=== PATIENT | female | born 1975 | race Caucasian/White ===

== ENCOUNTER 2017-01-25 16:18 | Emergency (ER) | payer OTHER ==
[~2017-01-25 16:18] MED LIST: BACTROBAN22 TOP; HIB240 TP; KLOR-CON M1010 MEQ PO; LAC PO; LASIX; LASIX40 MG PO; LEVAQUIN750 MG PO; LIPI10 PO; METOPROLOL TART25 M1 PO; REVATIO20 M1 PO; ROB750 PO; VIAGRA50 MG PO; VITAMIN D1 TA1 PO; ZES5 PO
[2017-01-25 16:59] VITALS: BP 117/48
== END 2017-01-25 17:00 | disposition home or self-care (01) ==
LOC: ED 16:18
DX: I83.891 Varicose veins of right lower extremity with other complications (principal); I10 Essential (primary) hypertension

== ENCOUNTER 2017-03-02 01:26 | Emergency (ER) | payer OTHER ==
[2017-03-02 02:27] LABS: PLATELET COUNT 232 x10^3mcL (130-400); RED CELL DISTRIBUTION WIDTH 14.2 % (11.5-14.5)
[2017-03-02 02:31] LABS: BASOPHIL % 7.5 % (0-2)
[2017-03-02 02:43] LABS: ALKALINE PHOSPHATASE 190 U/L (46-116); ALT/SGPT 26 U/L (14-59); AST/SGOT 33 U/L (15-37); BILIRUBIN TOTAL 1.4 mg/dL (0.20-1.00); CALCIUM 8.7 mg/dL (8.5-10.1); CARBON DIOXIDE 21.3 mmol/L (21-32); CHLORIDE SERUM 103 mmol/L (98-107); CREATININE SERUM 0.5 mg/dL (0.6-1.0); GFR1 > 60 mL/min; GLUCOSE SERUM 85 mg/dL (74-106); SODIUM SERUM 139 mmol/L (136-145); TOTAL PROTEIN, SERUM 7.4 g/dL (6.4-8.2)
[2017-03-02 02:46] LABS: POTASSIUM SERUM 2.8 mmol/L (3.5-5.1)
[2017-03-02 03:16] LABS: microscopic required? YES; urine erythrocyte 2+ (NEGATIVE)
[2017-03-02 05:23] VITALS: BP 128/75
== END 2017-03-02 05:20 | disposition home or self-care (01) ==
LOC: ED 01:26
PROVIDERS: Emergency Medicine
DX: O03.9 Complete or unspecified spontaneous abortion without complication (principal); O10.111 Pre-existing hypertensive heart disease complicating pregnancy, first trimester; I50.9 Heart failure, unspecified; Z3A.01 Less than 8 weeks gestation of pregnancy
CPT/HCPCS: 36415; J1170; Q0162

== ENCOUNTER 2017-06-28 22:06 | Emergency (ER) | payer OTHER | END 2017-06-28 23:33 | disposition left against medical advice (07) | LOC: ED 22:06 | DX: Z53.21 Procedure and treatment not carried out due to patient leaving prior to being seen by health care provider (principal) ==

== ENCOUNTER 2017-07-04 07:17 | Emergency (ER) | payer OTHER ==
[~2017-07-04] VITALS: Ht 167.6 cm; Wt 97.2 kg
[2017-07-04 07:30] VITALS: Ht 167.6 cm; Wt 97.2 kg
[2017-07-04 10:40] VITALS: BP 128/73
== END 2017-07-04 10:41 | disposition home or self-care (01) ==
LOC: ED 07:17
DX: S29.011A Strain of muscle and tendon of front wall of thorax, initial encounter (principal); I10 Essential (primary) hypertension; X58.XXXA Exposure to other specified factors, initial encounter; Y93.89 Activity, other specified; Y92.89 Other specified places as the place of occurrence of the external cause; Y99.8 Other external cause status

== ENCOUNTER 2018-04-20 23:16 | Inpatient (IN) | payer OTHER ==
[~2018-04-20] VITALS: Ht 167.6 cm; Wt 99.8 kg
[2018-04-20 23:20] VITALS: Ht 167.6 cm; Wt 99.8 kg
[2018-04-21 00:05] LABS: BASOPHIL % 1.1 % (0-2); PLATELET COUNT 206 x10^3mcL (130-400)
[2018-04-21 00:11] LABS: RED CELL DISTRIBUTION WIDTH 19.4 % (11.5-14.5)
[2018-04-21 00:17] LABS: ALBUMIN 2.9 g/dL (3.4-5.0); ALKALINE PHOSPHATASE 250 U/L (46-116); ALT/SGPT 33 U/L (14-59); AST/SGOT 50 U/L (15-37); BILIRUBIN TOTAL 3.1 mg/dL (0.20-1.00); CALCIUM 8.4 mg/dL (8.5-10.1); CARBON DIOXIDE 25.6 mmol/L (21-32); CHLORIDE SERUM 105 mmol/L (98-107); CREATININE SERUM 0.7 mg/dL (0.6-1.0); GFR1 > 60 mL/min; GLUCOSE SERUM 85 mg/dL (74-106); SODIUM SERUM 137 mmol/L (136-145); TOTAL PROTEIN, SERUM 7.4 g/dL (6.4-8.2)
[2018-04-21 00:21] LABS: POTASSIUM SERUM 2.9 mmol/L (3.5-5.1)
[2018-04-21 01:42] LABS: MAGNESIUM 1.8 mg/dL (1.8-2.4)
[2018-04-21 01:54] LABS: CHOLESTEROL/HDL RATIO 1.8
[2018-04-21 02:35] VITALS: BP 116/81
[2018-04-21 03:17] VITALS: BP 131/56
[2018-04-21 05:32] LABS: microscopic required? NO
[2018-04-21 05:52] LABS: urine erythrocyte NEGATIVE (NEGATIVE)
[2018-04-21 06:06] LABS: AMPHETAMINE QUAL UR POSITIVE (See below)
[2018-04-21 09:10] VITALS: BP 124/69
[2018-04-21 12:50] VITALS: BP 96/58
[2018-04-21 18:04] VITALS: BP 105/58
[2018-04-21 20:53] VITALS: BP 98/60
[2018-04-22 05:29] VITALS: BP 93/54
[2018-04-22 07:19] LABS: BASOPHIL % 1.3 % (0-2); PLATELET COUNT 201 x10^3mcL (130-400)
[2018-04-22 07:23] LABS: RED CELL DISTRIBUTION WIDTH 19.7 % (11.5-14.5)
[2018-04-22 07:53] LABS: CARBON DIOXIDE 23.1 mmol/L (21-32); CHLORIDE SERUM 103 mmol/L (98-107); CREATININE SERUM 0.7 mg/dL (0.6-1.0); GFR1 > 60 mL/min; GLUCOSE SERUM 84 mg/dL (74-106); POTASSIUM SERUM 3.2 mmol/L (3.5-5.1); SODIUM SERUM 137 mmol/L (136-145)
[2018-04-22 08:54] VITALS: BP 108/69
[2018-04-22 13:23] VITALS: BP 109/60
== END 2018-04-22 15:17 | disposition left against medical advice (07) | DRG 207 ==
LOC: ED 23:16 → DU 04-21 01:00
PROVIDERS: Emergency Medicine; Internal Medicine
DX: I27.20 Pulmonary hypertension, unspecified (principal); J96.91 Respiratory failure, unspecified with hypoxia; I50.33 Acute on chronic diastolic (congestive) heart failure; J18.9 Pneumonia, unspecified organism; I11.0 Hypertensive heart disease with heart failure; I36.1 Nonrheumatic tricuspid (valve) insufficiency; E87.6 Hypokalemia; F15.10 Other stimulant abuse, uncomplicated; I37.1 Nonrheumatic pulmonary valve insufficiency; I25.10 Atherosclerotic heart disease of native coronary artery without angina pectoris; Z53.21 Procedure and treatment not carried out due to patient leaving prior to being seen by health care provider; J44.0 Chronic obstructive pulmonary disease with (acute) lower respiratory infection; Z68.35 Body mass index [BMI] 35.0-35.9, adult; Z83.3 Family history of diabetes mellitus; Z71.51 Drug abuse counseling and surveillance of drug abuser
CPT/HCPCS: 83880; 85378; 87804; 90658; J1644; J1940; J1956; J7620; Q0092

== ENCOUNTER 2018-07-28 21:21 | Inpatient (IN) | payer OTHER ==
[~2018-07-28] VITALS: Ht 167.6 cm; Wt 105.0 kg
[2018-07-28 22:16] LABS: PLATELET COUNT 207 x10^3mcL (130-400)
[2018-07-28 22:17] LABS: RED CELL DISTRIBUTION WIDTH 18.9 % (11.5-14.5)
[2018-07-28 22:45] LABS: ALKALINE PHOSPHATASE 225 U/L (46-116); ALT/SGPT 27 U/L (14-59); AST/SGOT 43 U/L (15-37); BILIRUBIN TOTAL 3.92 mg/dL (0.20-1.00); CALCIUM 8.2 mg/dL (8.5-10.1); CARBON DIOXIDE 30.9 mmol/L (21-32); CHLORIDE SERUM 101 mmol/L (98-107); CREATININE SERUM 0.7 mg/dL (0.6-1.0); GFR1 > 60 mL/min; GLUCOSE SERUM 102 mg/dL (74-106); SODIUM SERUM 140 mmol/L (136-145); TOTAL PROTEIN, SERUM 7.3 g/dL (6.4-8.2)
[2018-07-28 22:46] LABS: ALBUMIN 2.8 g/dL (3.4-5.0)
[2018-07-28 22:50] LABS: CK-MB 1.5 ng/mL (0-3.6)
[2018-07-28 22:56] LABS: POTASSIUM SERUM 2.3 mmol/L (3.5-5.1)
[2018-07-29 02:52] VITALS: BP 112/68
[2018-07-29 03:31] LABS: MAGNESIUM 1.5 mg/dL (1.8-2.4)
[2018-07-29 03:36] LABS: CHOLESTEROL/HDL RATIO 2.4
[2018-07-29 06:30] VITALS: BP 102/51
[2018-07-29 06:39] LABS: CALCIUM 8.5 mg/dL (8.5-10.1); CARBON DIOXIDE 29.1 mmol/L (21-32); CHLORIDE SERUM 100 mmol/L (98-107); GFR1 > 60 mL/min; GLUCOSE SERUM 93 mg/dL (74-106); SODIUM SERUM 139 mmol/L (136-145)
[2018-07-29 06:48] LABS: POTASSIUM SERUM 2.9 mmol/L (3.5-5.1)
[2018-07-29 08:53] VITALS: BP 129/54
[2018-07-29 12:47] VITALS: BP 103/58
[2018-07-29 18:47] LABS: microscopic required? YES; urine erythrocyte TRACE (NEGATIVE)
[2018-07-29 18:56] LABS: AMPHETAMINE QUAL UR POSITIVE (See below)
[2018-07-29 21:03] VITALS: BP 74/39
[2018-07-29 21:35] VITALS: BP 92/52
[2018-07-30] VITALS (14 sets, daily range): BP systolic 66–102; BP diastolic 20–59
[2018-07-30 06:30] LABS: CALCIUM 7.9 mg/dL (8.5-10.1); CARBON DIOXIDE 28.6 mmol/L (21-32); CREATININE SERUM 2.3 mg/dL (0.6-1.0); POTASSIUM SERUM 3.7 mmol/L (3.5-5.1)
[2018-07-30 06:54] LABS: BASOPHIL % 0.9 % (0-2); PLATELET COUNT 203 x10^3mcL (130-400)
[2018-07-31 06:14] VITALS: BP 94/54
[2018-07-31 06:27] LABS: CALCIUM 8.7 mg/dL (8.5-10.1); CARBON DIOXIDE 23.6 mmol/L (21-32); CREATININE SERUM 2.7 mg/dL (0.6-1.0); POTASSIUM SERUM 3.9 mmol/L (3.5-5.1)
[2018-07-31 06:36] LABS: BASOPHIL % 0.8 % (0-2); PLATELET COUNT 237 x10^3mcL (130-400)
[2018-07-31 06:50] LABS: RED CELL DISTRIBUTION WIDTH 17.3 % (11.5-14.5)
[2018-07-31 09:28] VITALS: BP 100/99
[2018-07-31 12:20] VITALS: BP 106/66
[2018-07-31 19:10] VITALS: BP 92/54
[2018-07-31 21:40] VITALS: BP 103/50
[2018-08-01 05:30] VITALS: BP 116/76
[2018-08-01 05:37] VITALS: BP 96/56
[2018-08-01 07:05] LABS: CALCIUM 8.8 mg/dL (8.5-10.1); CARBON DIOXIDE 19.9 mmol/L (21-32); CREATININE SERUM 2.2 mg/dL (0.6-1.0); MAGNESIUM 2.1 mg/dL (1.8-2.4); PHOSPHOROUS 4.4 mg/dL (2.5-4.9); POTASSIUM SERUM 3.7 mmol/L (3.5-5.1)
[2018-08-01 07:11] LABS: BASOPHIL % 0.5 % (0-2); PLATELET COUNT 236 x10^3mcL (130-400)
[2018-08-01 07:13] LABS: RED CELL DISTRIBUTION WIDTH 17.7 % (11.5-14.5)
[2018-08-01 09:00] VITALS: BP 117/62
[2018-08-01 12:30] VITALS: BP 107/75
[2018-08-01 18:04] VITALS: BP 96/61
[2018-08-01 22:01] VITALS: BP 126/59
[2018-08-02 05:21] VITALS: BP 114/58
[2018-08-02 07:46] LABS: CALCIUM 9.2 mg/dL (8.5-10.1); CARBON DIOXIDE 19.2 mmol/L (21-32); CREATININE SERUM 1.6 mg/dL (0.6-1.0); POTASSIUM SERUM 4.1 mmol/L (3.5-5.1)
[2018-08-02 08:44] LABS: BASOPHIL % 0.6 % (0-2); PLATELET COUNT 248 x10^3mcL (130-400)
[2018-08-02 08:50] LABS: RED CELL DISTRIBUTION WIDTH 18.4 % (11.5-14.5)
[2018-08-02 09:59] VITALS: BP 124/37
[2018-08-02 13:39] VITALS: BP 105/81
[2018-08-02 17:36] VITALS: BP 95/56
[2018-08-02 20:49] VITALS: Ht 167.6 cm; Wt 105.0 kg
[2018-08-02 21:19] VITALS: BP 110/76
[2018-08-03 05:56] VITALS: BP 105/56
[2018-08-03 06:12] LABS: BASOPHIL % 0.9 % (0-2); PLATELET COUNT 242 x10^3mcL (130-400)
[2018-08-03 06:26] LABS: CARBON DIOXIDE 24.6 mmol/L (21-32); CREATININE SERUM 1.3 mg/dL (0.6-1.0); POTASSIUM SERUM 3.7 mmol/L (3.5-5.1)
[2018-08-03 06:33] LABS: RED CELL DISTRIBUTION WIDTH 19.6 % (11.5-14.5)
[2018-08-03 09:59] VITALS: BP 110/51
[2018-08-03 13:11] VITALS: BP 104/59
[2018-08-03 17:22] VITALS: BP 114/61
[2018-08-03 20:37] VITALS: BP 111/66
[2018-08-04 05:01] VITALS: BP 104/62
[2018-08-04 10:08] VITALS: BP 94/52
== END 2018-08-04 11:55 | disposition left against medical advice (07) | DRG 201 ==
LOC: ED 21:21 → DU 23:21
PROVIDERS: Emergency Medicine; Internal Medicine Nephrology; ADMIT Internal Medicine
DX: I48.0 Paroxysmal atrial fibrillation (principal); J96.21 Acute and chronic respiratory failure with hypoxia; I50.43 Acute on chronic combined systolic (congestive) and diastolic (congestive) heart failure; N17.9 Acute kidney failure, unspecified; I36.1 Nonrheumatic tricuspid (valve) insufficiency; J44.9 Chronic obstructive pulmonary disease, unspecified; Z53.21 Procedure and treatment not carried out due to patient leaving prior to being seen by health care provider; I48.92 Unspecified atrial flutter; I37.1 Nonrheumatic pulmonary valve insufficiency; I27.20 Pulmonary hypertension, unspecified; I42.9 Cardiomyopathy, unspecified; E87.6 Hypokalemia; F15.10 Other stimulant abuse, uncomplicated; I25.10 Atherosclerotic heart disease of native coronary artery without angina pectoris; I11.0 Hypertensive heart disease with heart failure; Z99.81 Dependence on supplemental oxygen; Z83.3 Family history of diabetes mellitus
CPT/HCPCS: 36600; 83880; 94150; J1644; J1940; J2270; J2405; J2550; J3010; J3475; J3480; J3490; J7040; J7626; Q0092